=== PATIENT | female | born 1995 | race Caucasian/White ===

== ENCOUNTER 2018-06-30 19:54 | Emergency (ER) | payer OTHER ==
[~2018-06-30 19:54] MED LIST: ISOVUE-370 76%-LOCM 1 ML ONE
[2018-06-30 21:11] LABS: Bilirubin Negative (Negative); Blood, Urine Negative (Negative); Clarity TURBID (Clear); Glucose, Urine (Dipstick) Negative (Negative); Leukocyte Negative (Negative); Nitrite Negative (Negative); Protein, Urine (Dipstick) Negative (Neg-Trace); Specific Gravity, Urine 1.011 (1.002-1.036); Urobilinogen 0.2 mg/dL (0.2-1.0); pH, Urine 7.5 (5.0-9.0)
[2018-06-30 21:13] LABS: Pregnancy Test - Urine (BHCG) Negative (Negative); Pregu Control Background? CLEAR/WHITE (CLR/WHITE); Pregu Control Bar Appear? YES (CONTROL BAR); Specific Gravity 1.011 (1.002-1.036)
[2018-06-30 21:18] LABS: #Basophils 0.1 thou/uL (0.0-0.2); #Eosinphils 0.2 thou/uL (0.0-0.7); #Lymphocytes 3.2 thou/uL (1.20-3.40); #Monocytes 0.6 thou/uL (0.11-0.59); #Neutrophils 3.4 thou/uL (1.40-6.50); %Basophils 1.1 % (0.0-1.0); %Eosinophils 2.2 % (0.0-10.0); %Lymphocytes 43.3 % (21.0-51.0); %Monocytes 7.8 % (0.0-10.0); %Neutrophils 45.7 % (42.0-75.0); Hemoglobin 14.3 g/dL (12.0-16.0); Mean Corpuscular HGB CONC 34.3 g/dL (32.0-36.0); Mean Corpuscular Hemoglobin 30.3 pg (27.0-31.0); Mean Corpuscular Volume 88.4 fL (78.0-98.0); Mean Platelet Volume 7.6 fL (7.4-10.4); Platelet Count 207 thou/uL (130-400); RBC Distribution Width 11.4 % (11.5-14.5); Red Blood Cell (RBC) Count 4.71 mill/uL (4.20-5.40); White Blood Cell (WBC) Count 7.5 thou/uL (4.8-10.8)
[2018-06-30 21:38] LABS: ALT (SGPT) 21 U/L (8-55); AST (SGOT) 22 U/L (5-34); Albumin 4.4 g/dL (3.5-5.0); Alkaline Phosphatase 41 U/L (40-150); Anion Gap 10 mmol/L (10-20); BUN (Urea Nitrogen) 12 mg/dL (7.0-18.7); Bilirubin, Total 0.4 mg/dL (0.2-1.2); Calc. Creatinine Clearance 0 mL/min (70-130); Calcium 9.1 mg/dL (7.8-10.44); Carbon Dioxide 27 mmol/L (22-29); Chloride 106 mmol/L (98-107); Estimated GFR-MDRD 87; Globulin 2.4 g/dL (2.4-3.5); Glucose 84 mg/dL (70-105); Lipase 59 U/L (8-78); Potassium 3.6 mmol/L (3.5-5.1); Protein, Total 6.8 g/dL (6.0-8.3); Sodium 139 mmol/L (136-145)
--- NOTE | 2018-06-30 22:17 | CT ---
FCT abdomen and pelvis with IV contrast. Oral contrast was not administered. INDICATIONS: Right lower quadrant pain COMPARISON: None FINDINGS: Lung bases are clear Liver, spleen, and pancreas appear unremarkable. Stomach and duodenum appear unremarkable. Adrenal glands appear normal. There is a 5 mm nonobstructing calculus in the upper lung structures the right kidney. No hydronephro sis. No evidence of ureteral calculus or obstruction. Small bowel loops are normal caliber and exhibit normal fold pattern. Appendix is identified and appears unremarkable. Colon is unremarkable. Aorta is normal caliber. No evidence of retroperitoneal or mesenteric adenopathy. There is IUD in the endometrial cavity. There is a 4.3 cm cystic mass in the left pelvis. Ovarian suresh ology would be suspected. Correlate with serum hCG to exclude ectopic . No significant free fluid. Subcutaneous tissues, abdominal wall, and muscular structures appear unremarkable. Osseous structures appear unremarkable. IMPRESSION: 1. 4.0 cm cystic mass in the left pelvis. Correlate with serum hCG level.
[2018-06-30] MEDS ORDERED: Ketorolac Tromethamine 30 MG/ML VIAL ONE (22:35)
== END 2018-06-30 22:55 | disposition home or self-care (01) ==
LOC: ERS 19:54
DX: N83.202 Unspecified ovarian cyst, left side (principal); Z87.442 Personal history of urinary calculi
CPT/HCPCS: 74177; 80053; 81003; 81025; 83690; 85025; 96374; J1885; Q9966

== ENCOUNTER 2018-12-24 18:35 | Emergency (ER) | payer OTHER ==
--- NOTE | 2018-12-24 19:10 | RAD ---
TWO VIEWS OF THE CHEST: 12/24/18 COMPARISON: None. HISTORY: Dyspnea. FINDINGS: Two views of the chest show normal sized cardiomediastinal silhouette. There is no evidence of consol idation, mass, or pleural effusion. The bones are unremarkable. IMPRESSION: No evidence of acute cardiopulmonary disease. POS: C
[2018-12-24 19:55] LABS: #Basophils 0.1 thou/uL (0.0-0.2); #Eosinphils 0.2 thou/uL (0.0-0.7); #Monocytes 0.8 thou/uL (0.11-0.59); #Neutrophils 5.4 thou/uL (1.40-6.50); %Basophils 0.6 % (0.0-1.0); %Eosinophils 1.8 % (0.0-10.0); %Lymphocytes 31.7 % (21.0-51.0); %Monocytes 8.3 % (0.0-10.0); %Neutrophils 57.6 % (42.0-75.0); Hemoglobin 15.5 g/dL (12.0-16.0); Mean Corpuscular HGB CONC 34.8 g/dL (32.0-36.0); Mean Corpuscular Hemoglobin 30.7 pg (27.0-31.0); Mean Corpuscular Volume 88.2 fL (78.0-98.0); Mean Platelet Volume 7.5 fL (7.4-10.4); Platelet Count 188 thou/uL (130-400); RBC Distribution Width 11.5 % (11.5-14.5); Red Blood Cell (RBC) Count 5.04 mill/uL (4.20-5.40); White Blood Cell (WBC) Count 9.4 thou/uL (4.8-10.8)
[2018-12-24 20:16] LABS: ALT (SGPT) 7 U/L (8-55); AST (SGOT) 19 U/L (5-34); Albumin 4.7 g/dL (3.5-5.0); Alkaline Phosphatase 50 U/L (40-110); Anion Gap 14 mmol/L (10-20); BUN (Urea Nitrogen) 10 mg/dL (7.0-18.7); Bilirubin, Total 0.5 mg/dL (0.2-1.2); Calc. Creatinine Clearance 0 mL/min (70-130); Calcium 9.9 mg/dL (7.8-10.44); Carbon Dioxide 21 mmol/L (22-29); Chloride 107 mmol/L (98-107); Estimated GFR-MDRD 66; Glucose 81 mg/dL (70-105); Protein, Total 7.7 g/dL (6.0-8.3); Sodium 138 mmol/L (136-145)
--- NOTE | 2019-01-03 06:05 | PQF ---
[place] POST DISCHARGE CLINICAL DOCUMENTATION IMPROVEMENT CLARIFICATION FORM l Todays Date: 01/02/19 l Patients Name Roxy Benoit l l Admit Date 12/24/18 l Disch Date 12/24/18 Domestic Laundry Worker Name Neenadavid Valenciayl Email: [email or web address] Cell: [phone] To be completed by Domestic Laundry Worker: Present Clinical Indicators - Signs / Symptoms Results and Location in Medical Record [ ] Documentation of: [ ] [ ] Documentation of: [ ] [ ] Documentation of: [ ] [ ] Documentation of: [ ] [ ] Risks [ ] [ ] [ ] Treatment [ ] Bronchitis Query for Specificity of Acute or Chronic of Bronchitis. [ ] [ ] To be completed by Physician: DR. Kristina DO, Chance The documentation in this patients record requires clarification to ensure coding compliance and accuracy. Check the appropriate box and include in your discharge summary. [ ] [ ] [ ] [ ] Please check this box if this does not apply to this patient [ ] Unable to determine [ ] Other diagnosis: Review the following information and exercise your independent professional judgment in responding to the clarification. Based upon the clinical findings, risk factors, and treatment, please clarify if you are treating one of the above probable or suspected diagnoses. Physician Signature: Date Time MTDD
--- NOTE | 2019-01-04 14:42 | EKG ---
Test Reason : Blood Pressure : / mmHG Vent. Rate : 076 BPM Atrial Rate : 076 BPM P-R Int : 146 ms QRS Dur : 076 ms QT Int : 346 ms P-R-T Axes : 058 062 041 degrees QTc Int : 389 ms Normal sinus rhythm with sinus arrhythmia Normal ECG Confirmed by CONCEPCIÓN RODRIGUEZ DO ([id number]), manager editorial FARIHA PAT ([id number]) on 01/04/2019 2:41:52 PM Referred By: Confirmed By:CONCEPCIÓN RODRIGUEZ DO
== END 2018-12-24 21:05 | disposition home or self-care (01) ==
LOC: ERS 18:35
DX: J40 Bronchitis, not specified as acute or chronic (principal); R07.89 Other chest pain
CPT/HCPCS: 71046; 80053; 84484; 85025; 85379; 93005; 94640; J7620

== ENCOUNTER 2020-01-09 17:09 | Emergency (ER) | payer OTHER ==
[2020-01-09] MEDS ORDERED: Metoclopramide HCl 10 MG/2 ML VIAL ONE (17:43)
[2020-01-09] MEDS ORDERED: diphenhydrAMINE 50 MG/ML VIAL ONE (17:43)
[2020-01-09 18:06] LABS: #Eosinphils 0.1 thou/uL (0.0-0.7); #Lymphocytes 2.2 thou/uL (1.20-3.40); #Monocytes 0.4 thou/uL (0.11-0.59); #Neutrophils 2.3 thou/uL (1.40-6.50); %Basophils 0.6 % (0.0-1.0); %Eosinophils 1.5 % (0.0-10.0); %Lymphocytes 44.2 % (21.0-51.0); %Monocytes 7.8 % (0.0-10.0); %Neutrophils 45.9 % (42.0-75.0); Hemoglobin 15.2 g/dL (12.0-16.0); Mean Corpuscular HGB CONC 34.3 g/dL (32.0-36.0); Mean Corpuscular Hemoglobin 30.1 pg (27.0-31.0); Mean Corpuscular Volume 87.8 fL (78.0-98.0); Mean Platelet Volume 7.4 fL (7.4-10.4); Platelet Count 219 thou/uL (130-400); RBC Distribution Width 11.2 % (11.5-14.5); Red Blood Cell (RBC) Count 5.05 mill/uL (4.20-5.40); White Blood Cell (WBC) Count 4.9 thou/uL (4.8-10.8)
--- NOTE | 2020-01-09 18:10 | CT ---
CT Brain WO Con History: Migraine Comparison: None. Findings: No acute hemorrhage or infarct. No midline shift or mass effect. Ventricular size and extra -axial CSF spaces are normal. Calvarium is intact. Mild mucosal thickening of the anterior ethmoids. Mastoids are clear. Impression: No acute intracranial abnormality.
[2020-01-09 18:11] LABS: BHCG - Serum Negative (NEGATIVE)
[2020-01-09 18:12] LABS: Pregs Control Background? CLEAR/WHITE (CLR/WHITE); Pregs Control Bar Appear? YES (CONTROL BAR)
[2020-01-09] MEDS ORDERED: Ondansetron PF 4 MG/2 ML Vial ONE (18:19)
[2020-01-09 18:25] LABS: ALT (SGPT) 8 U/L (8-55); AST (SGOT) 17 U/L (5-34); Albumin 4.5 g/dL (3.5-5.0); Alkaline Phosphatase 57 U/L (40-110); Anion Gap 13 mmol/L (10-20); BUN (Urea Nitrogen) 10 mg/dL (7.0-18.7); Calc. Creatinine Clearance 0 mL/min (70-130); Calcium 9.3 mg/dL (7.8-10.44); Carbon Dioxide 25 mmol/L (22-29); Chloride 105 mmol/L (98-107); Estimated GFR-MDRD 70; Globulin 2.7 g/dL (2.4-3.5); Glucose 88 mg/dL (70-105); Potassium 4.1 mmol/L (3.5-5.1); Protein, Total 7.2 g/dL (6.0-8.3); Sodium 139 mmol/L (136-145)
[2020-01-09] MEDS ORDERED: Magnesium 2 GM/50 ML BAG (IN WATER) ONE (18:57)
[2020-01-09] MEDS ORDERED: methylPREDNISolone Sod Succ/PF 125 MG/2 ML VIAL ONE (18:57)
[2020-01-09] MEDS ORDERED: Ketorolac Tromethamine 30 MG/ML VIAL ONE (18:57)
== END 2020-01-09 20:04 | disposition home or self-care (01) ==
LOC: ERS 17:09
DX: G43.909 Migraine, unspecified, not intractable, without status migrainosus (principal)
CPT/HCPCS: 70450; 80053; 84703; 85025; 96365; 96366; 96368; 96375; J1200; J1885; J2405; J2765; J2930; J3475

== ENCOUNTER 2021-02-07 16:06 | Emergency (ER) | payer OTHER ==
[2021-02-07] MEDS ORDERED: Ketorolac Tromethamine 30 MG/ML VIAL ONE (17:44)
== END 2021-02-07 18:34 | disposition home or self-care (01) ==
LOC: ERS 16:06
DX: S39.012A Strain of muscle, fascia and tendon of lower back, initial encounter (principal); R20.2 Paresthesia of skin; Z87.442 Personal history of urinary calculi; Z79.899 Other long term (current) drug therapy; X58.XXXA Exposure to other specified factors, initial encounter
CPT/HCPCS: 96372; 99283; J1885

== ENCOUNTER 2023-03-09 19:26 | Emergency (ER) | payer BC, OTHER | END 2023-03-09 20:43 | disposition home or self-care (01) | LOC: ERS 19:26 | DX: M25.562 Pain in left knee (principal) ==